=== PATIENT | male | born 1965 | race African-American/Black ===

== ENCOUNTER 2016-04-03 13:10 | Emergency (ER) | payer OTHER ==
[~2016-04-03] VITALS: Ht 167.6 cm; Wt 79.1 kg
[~2016-04-03 13:10] MED LIST: BENTYL10 MG PO; MUSCLE RELAXER; NAPROXEN500 MG PO; PERCOCET; [UNRECOGNIZED DRUG - OTHER]
[2016-04-03 13:48] LABS: EOSINOPHIL (%) 0.7 % (0-5); EOSINOPHIL COUNT 0.1 K/uL (0-0.3); HEMATOCRIT 43.3 % (38.0-50.0); IMMATURE GRANULOCYTE (%) 0.2 % (0.0-0.7); IMMATURE GRANULOCYTE COUNT 0.2 K/uL; LYMPHOCYTE COUNT 3.8 K/uL (1.0-2.8); MCH 30.9 PG (29.0-34.0); MCHC 34.4 G/DL (30.0-36.0); MCV 89.8 FL (86-99); MEAN PLAT.VOLUME 8.8 uM^3 (9.0-12.4); MONOCYTE (%) 8.6 % (3-12); MONOCYTE COUNT 0.9 K/uL (0-0.8); NEUTROPHIL COUNT 5.2 K/uL (1.8-6.4); PLATELET COUNT 292 K/uL (156-360); RBC DIS.WIDTH-CV 12.5 % (11.8-14.6); RBC DIS.WIDTH-SD 40.5 % (39-53); RED BLOOD COUNT 4.82 M/uL (4.00-5.50)
[2016-04-03 14:00] LABS: CHLORIDE 105 mEq/L (99-109); POTASSIUM 3.8 mEq/L (3.7-5.4); SODIUM 141 mEq/L (136-147)
[2016-04-03 14:02] LABS: GLUCOSE 85 mg/dL (70-99)
[2016-04-03 14:03] LABS: ANION GAP 12 MEQ/L (2-14)
[2016-04-03 14:04] LABS: TOTAL BILIRUBIN 0.6 mg/dL (0.0-1.0)
[2016-04-03 14:05] LABS: ALKALINE PHOSPHATASE 68 IU/L (3-129)
[2016-04-03 14:06] LABS: GFR ESTIMATE (CALCULATED) > 59 mL/min/
[2016-04-03 14:07] LABS: UREA NITROGEN (BUN) 12 mg/dL (9-23)
[2016-04-03 14:11] LABS: TROP-I INTERPRETATION NEGATIVE; TROPONIN-I < 0.01 ng/mL (0.0-0.30)
[2016-04-03 16:16] LABS: TROP-I INTERPRETATION NEGATIVE; TROPONIN-I < 0.01 ng/mL (0.0-0.30)
[2016-04-03] MEDS ORDERED: NAPROSYN500 MG PO (16:27)
[2016-04-03] MEDS ORDERED: FLEXERIL10 MG PO (16:27)
[2016-04-03 16:34] VITALS: BP 129/86
== END 2016-04-03 16:53 | disposition home or self-care (01) ==
LOC: EME → EDBD 13:10 → EME 13:10
PROVIDERS: Emergency Medicine
DX: R07.89 Other chest pain (principal); M25.512 Pain in left shoulder; F17.200 Nicotine dependence, unspecified, uncomplicated
CPT/HCPCS: 71020; 80053; 84484; 85025; 93005; 99281; 99285; J1885